=== PATIENT | male | born 1955 | race Caucasian/White ===

== ENCOUNTER → 2024-08-13 | Outpatient (CLI) | payer MEDICARE, BC, SELFPAY ==
[2024-08-13 13:18] LABS: C-Reactive Protein 0.9 mg/dL (0.0-0.9)
[2024-08-13 13:33] LABS: Sed Rate (ESR) 13 mm/hr (0-20)
[2024-08-13 16:33] LABS: RA Screen Negative (Negative)
[2024-08-23 07:23] LABS: ANA Screen, IFA NEGATIVE (NEGATIVE)
== END | disposition home or self-care (01) ==
LOC: COPL 12:02
PROVIDERS: PCP Physician Assistant; Referring Provider Physician Assistant; Visit Provider Physician Assistant
DX: M25.50 Pain in unspecified joint (principal)
CPT/HCPCS: 36415; 85652; 86038; 86140; 86430

== ENCOUNTER → 2024-11-01 | Outpatient (CLI) | payer MEDICARE, BC, SELFPAY ==
[2024-11-01 13:11] LABS: Basophils % (Auto) 1 % (0-2.5); Eosinophils # (Auto) 0.2 Thou/mm3 (0.0-0.5); Eosinophils % (Auto) 4 % (0-10); Hematocrit 41.8 % (41.0-53.0); Hemoglobin 14.4 g/dL (13.5-16.0); Immature Granulocytes % (Auto) 0 % (0-0); Immature Granulocytes Auto 0.02 Thou/mm3 (0.00-0.00); Lymphocytes % (Auto) 42 % (10-50); Mean Corpuscular HGB Conc 34.4 g/dl (31.0-37.0); Mean Corpuscular Hemoglobin 34.4 pg (25.0-35.0); Mean Corpuscular Volume 100 fL (80-100); Monocytes # (Auto) 0.3 Thou/mm3 (0.0-0.8); Monocytes % (Auto) 7 % (0-12); Neutrophils # (Auto) 2.2 Thou/mm3 (1.8-7.7); Neutrophils % (Auto) 46 % (37-80); Nucleated Red Blood Cell % 0 /100 WBC (0); Platelet Count 141 Thou/mm3 (140-440); RDW Standard Deviation 46.3 fL (35.1-43.9); Red Blood Count 4.19 Miln/mm3 (4.50-5.90); White Blood Count 4.8 Thou/mm3 (3.8-10.6)
[2024-11-01 13:28] LABS: Alanine Aminotransferase 12 U/L (10-49); Albumin, Serum 4.5 gm/dL (3.4-4.8); Alkaline Phosphatase 75 U/L (46-116); Anion Gap 5 (7-16); Aspartate Amino Transferase 21 U/L (0-34); BUN/Creatinine Ratio 19 Ratio (12-20); Bilirubin,Total 0.8 mg/dL (0.3-1.2); Blood Urea Nitrogen 17 mg/dL (9-23); Calcium 9.7 mg/dL (8.3-10.6); Calcium (Corrected) 9.7 mg/dL (8.5-10.1); Carbon Dioxide 28.8 mMol/L (20.0-31.0); Chloride 107 mMol/L (98-107); Creatinine (Component) 0.9 mg/dL (0.6-1.3); Globulin 2.2 gm/dL (2.3-3.5); Glucose 115 mg/dL (74-106); Osmolality,Calculated 283 (275-295); Potassium 4.6 mMol/L (3.4-5.1); Sodium 141 mMol/L (136-145); Total Protein 6.7 gm/dL (5.7-8.2); eGFR > 60 See Note
[2024-11-10 06:19] LABS: CCP Antibody (IgG)* <16 Units
== END | disposition home or self-care (01) ==
LOC: COPL 12:35
PROVIDERS: PCP Family Medicine; Referring Provider Internal Medicine; Visit Provider Internal Medicine
DX: M17.0 Bilateral primary osteoarthritis of knee (principal); M54.2 Cervicalgia; M79.641 Pain in right hand
CPT/HCPCS: 36415; 80053; 85025; 86200

== ENCOUNTER → 2025-01-27 | Outpatient (CLI) | payer MEDICARE, BC, SELFPAY ==
--- NOTE | 2025-01-27 | XR_ITS ---
Examination: Lumbar spine 3 views. TECHNIQUE: AP, lateral, cone-down lateral at lower lumbar spine 3 views. Exam date and time: January 27, 2025, 1715 hours INDICATIONS: Low back pain beginning 2 years ago. FINDINGS: Moderate osteopenia Chronic mild osteoporotic wedging T12 Lumbar levoscoliosis 10 degrees. No lumbar fracture. Mild to moderate diffuse lumbar degenerative disc disease, most prominent at L5-S1. No spondylolisthesis IMPRESSION: Mild to moderate diffuse lumbar degenerative disc disease, most prominent at L5-S1
--- NOTE | 2025-01-27 16:24 | XR_ITS ---
Examination: Cervical spine 3 views. TECHNIQUE: AP, lateral, coned AP odontoid cervical spine 3 views. Exam date and time: January 27, 2025 at 1707 hours, comparison October 06, 2023. INDICATIONS: Neck pain 2 years. FINDINGS: Moderate osteopenia. Satisfactory alignment cervical vertebral bodies. No cervical fracture. Intact odontoid. Moderate to advanced degenerative disc disease C5-C6. Incidental note heavy soft tissue vascular right carotid calcification IMPRESSION: Moderately advanced degenerative disc disease C5-C6 Incidental note heavy soft tissue vascular right carotid calcification, consider carotid Doppler sonography follow-up
== END | disposition home or self-care (01) ==
LOC: CDIM 16:17
PROVIDERS: PCP Family Medicine; Referring Provider Orthopaedic Surgery; Visit Provider Orthopaedic Surgery
DX: M50.322 Other cervical disc degeneration at C5-C6 level (principal); I65.21 Occlusion and stenosis of right carotid artery; M51.360 Other intervertebral disc degeneration, lumbar region with discogenic back pain only; M51.370 Other intervertebral disc degeneration, lumbosacral region with discogenic back pain only
CPT/HCPCS: 72040; 72100

== ENCOUNTER → 2025-02-28 | Outpatient (CLI) | payer MEDICARE, BC, SELFPAY ==
--- NOTE | 2025-02-28 12:18 | XR_ITS ---
Examination: PA lateral chest 2 views TECHNIQUE: Upright PA lateral chest 2 views Date and time: February 28, 2025 1220 hours Comparison October 06, 2023 INDICATIONS: Coughing one week FINDINGS: Normal heart size. Lungs are clear Old fracture right seventh rib IMPRESSION: No active disease
== END | disposition home or self-care (01) ==
LOC: CDIM 12:10
PROVIDERS: PCP Family Medicine; Referring Provider Family Medicine; Visit Provider Family Medicine
DX: R05.2 Subacute cough (principal); J30.1 Allergic rhinitis due to pollen
CPT/HCPCS: 71046

== ENCOUNTER → 2025-03-01 | Outpatient (CLI) | payer MEDICARE, BC, SELFPAY ==
[2025-03-01 13:43] LABS: Basophils % (Auto) 1 % (0-2.5); Eosinophils # (Auto) 0.1 Thou/mm3 (0.0-0.5); Eosinophils % (Auto) 3 % (0-10); Hematocrit 42.8 % (41.0-53.0); Immature Granulocytes % (Auto) 0 % (0-0); Immature Granulocytes Auto 0.01 Thou/mm3 (0.00-0.00); Lymphocytes # (Auto) 2.2 Thou/mm3 (1.0-4.8); Lymphocytes % (Auto) 47 % (10-50); Mean Corpuscular Hemoglobin 35.1 pg (25.0-35.0); Mean Corpuscular Volume 100 fL (80-100); Monocytes # (Auto) 0.4 Thou/mm3 (0.0-0.8); Monocytes % (Auto) 8 % (0-12); Neutrophils # (Auto) 1.9 Thou/mm3 (1.8-7.7); Neutrophils % (Auto) 41 % (37-80); Nucleated Red Blood Cell % 0 /100 WBC (0); Platelet Count 174 Thou/mm3 (140-440); Red Blood Count 4.27 Miln/mm3 (4.50-5.90); White Blood Count 4.6 Thou/mm3 (3.8-10.6)
[2025-03-01 13:59] LABS: Alanine Aminotransferase 14 U/L (10-49); Albumin, Serum 4.7 gm/dL (3.4-4.8); Albumin/Globulin Ratio 2.4 (1.2-2.2); Alkaline Phosphatase 69 U/L (46-116); Anion Gap 13 (7-16); Aspartate Amino Transferase 21 U/L (0-34); BUN/Creatinine Ratio 14 Ratio (12-20); Bilirubin,Total 0.8 mg/dL (0.3-1.2); Blood Urea Nitrogen 11 mg/dL (9-23); Calcium 9.3 mg/dL (8.3-10.6); Calcium (Corrected) 9.3 mg/dL (8.5-10.1); Carbon Dioxide 25.2 mMol/L (20.0-31.0); Cardiac Risk Estimate 3.5 RATIO (4.0-6.7); Chloride 105 mMol/L (98-107); Cholesterol 195 mg/dL (132-200); Creatinine (Component) 0.8 mg/dL (0.6-1.3); Glucose 94 mg/dL (74-106); HDL Cholesterol 56 mg/dL (40-60); LDL Cholesterol,Calculated 112 mg/dL (0-130); Osmolality,Calculated 284 (275-295); Potassium 4.3 mMol/L (3.4-5.1); Sodium 143 mMol/L (136-145); Total Protein 6.7 gm/dL (5.7-8.2); Triglycerides 135 mg/dL (30-150); eGFR > 60 See Note
== END | disposition home or self-care (01) ==
LOC: COPL 11:50
PROVIDERS: PCP Family Medicine; Referring Provider Family Medicine; Visit Provider Family Medicine
DX: J30.1 Allergic rhinitis due to pollen (principal); R05.2 Subacute cough; R79.9 Abnormal finding of blood chemistry, unspecified
CPT/HCPCS: 36415; 80053; 80061; 84153; 85025

== ENCOUNTER → 2025-03-02 | Outpatient (CLI) | payer MEDICARE, BC, SELFPAY | END | disposition home or self-care (01) | LOC: SLDO 10:46 | PROVIDERS: Referring Provider Family Medicine; Visit Provider Family Medicine | DX: J30.1 Allergic rhinitis due to pollen (principal); R05.2 Subacute cough | CPT/HCPCS: 87077; 87186; 87205 ==

== ENCOUNTER → 2025-04-18 | Outpatient (CLI) | payer MEDICARE, BC, SELFPAY ==
--- NOTE | 2025-04-18 13:47 | XR_ITS ---
Termination: Cervical spine 3 views Technique one AP lateral coned AP odontoid cervical spine 3 views Date and time: April 18, 2025 1356 hours Comparison January 27, 2025 INDICATIONS: Status post neck surgery September 2024 [place]: Status post cervical fusion C3-C7 with anatomic alignment No cervical fracture Intact odontoid IMPRESSION: Extensive cervical fusion with anatomic alignment and satisfactory position orthopedic hardware
== END | disposition home or self-care (01) ==
LOC: CDIM 13:42
PROVIDERS: PCP Family Medicine; Referring Provider Orthopaedic Surgery; Visit Provider Orthopaedic Surgery
DX: M43.22 Fusion of spine, cervical region (principal)
CPT/HCPCS: 72040

== ENCOUNTER → 2025-05-27 | Outpatient (CLI) | payer MEDICARE, BC, SELFPAY ==
--- NOTE | 2025-05-27 14:08 | XR_ITS ---
Examination: Cervical spine 4 views Technique one AP, lateral, swimmer's lateral, coned AP odontoid cervical spine 4 views Date and time: May 27, 2025, 1436 hours, comparison April 18, 2025. INDICATIONS: Status post cervical fusion 7 weeks ago. FINDINGS: Cervical fusion C3-C7 with anatomic alignment No cervical fracture. Intact odontoid IMPRESSION: Cervical fusion C3-C7 with anatomic alignment
== END | disposition home or self-care (01) ==
PROVIDERS: PCP Orthopaedic Surgery; Referring Provider Orthopaedic Surgery; Visit Provider Orthopaedic Surgery
DX: M43.22 Fusion of spine, cervical region (principal)
CPT/HCPCS: 72040

== ENCOUNTER → 2025-07-19 | Outpatient (CLI) | payer MEDICARE, BC, SELFPAY ==
[2025-07-19 13:44] LABS: Thyroid Stimulating Hormone 2.81 uIU/mL (0.55-4.78)
[2025-07-26 07:26] LABS: ANA Screen, IFA NEGATIVE (NEGATIVE)
== END | disposition home or self-care (01) ==
LOC: COPL 11:54
PROVIDERS: PCP Family Medicine; Referring Provider Specialist; Visit Provider Specialist
DX: E78.9 Disorder of lipoprotein metabolism, unspecified (principal)
CPT/HCPCS: 36415; 84443; 86038

== ENCOUNTER 2025-09-02 10:05 | Day surgery (SDC) | payer MEDICARE, BC, SELFPAY ==
[2025-09-01 10:31] VITALS: BMI 21.8
[2025-09-02] VITALS (9 sets, daily range): BP systolic 111–139; BP diastolic 71–95; PULSE 67–83; RESP 7–18; TEMP 36.4–36.7; O2SAT 94–126; BMI 22.7
[2025-09-02] MEDS: SODIUM CHLORIDE 0.9% 500 ML 500 ML 20 ML IV (11:35)
[2025-09-02] MEDS: BENZOCAINE 20% (Hurricaine) SPRAY 1 DOSE TOP (11:35)
[2025-09-02] MEDS: MIDAZOLAM INJ 1 MG/ML VIAL 2 ML (ASD USE ONLY) 2 MG IVP (11:38)
[2025-09-02] MEDS: fentaNYL CIT INJ 50 mCg/ML AMP 2ML (ASD USE ONLY) IVP (11:38)
== END 2025-09-02 12:30 | disposition home or self-care (01) ==
PROVIDERS: PCP Family Medicine; Referring Provider Specialist; Visit Provider Specialist
PROC: (CPT 43239; principal; 2025-09-02 11:15)
DX: K22.2 Esophageal obstruction (principal); K20.90 Esophagitis, unspecified without bleeding; Z87.11 Personal history of peptic ulcer disease; K86.2 Cyst of pancreas; K31.84 Gastroparesis; K29.51 Unspecified chronic gastritis with bleeding
CPT/HCPCS: 43248; 43239; A4649; C1769; J1200; J2250; J3010; J7999; A9270